=== PATIENT | male | born 1965 | race Hispanic/Latino ===

== ENCOUNTER 2017-10-30 08:06 | Outpatient (CLI) | payer OTHER ==
--- NOTE | 2017-10-30 12:48 | Ultrasound Report ---
RIGHT UPPER QUADRANT ABDOMINAL ULTRASOUND: 10/30/17 08:06:00 CLINICAL: Right upper quadrant abdominal pain. FINDINGS: High-resolution ultrasound demonstrated enlarged liver with moderate diffuse increased echogenicity. The right lobe measures approximately 17 cm in length. No liver mass.. Normal hepatic vasculature and inferior vena cava. Normally distended gallbladder with no stones. The gall bladder wall measures 2.0 mm in thickness. Normal intrahepatic and extra hepatic bile ducts. The common bile duct measures 3.0 mm diameter. Normal pancreatic head and body. The pancreatic tail is obscured by bowel gas. Normal upper abdominal aorta. The right kidney is normal and measures 11.9 x 5.5 x 4.9cm. No ascites or mass. IMPRESSION: 1. Hepatic steatosis and mild hepatomegaly. 2. No cholelithiasis but no signs of acute cholecystitis. 3. No biliary obstruction. 4. No signs of pancreatitis.
== END 2017-10-30 08:07 | disposition home or self-care (01) ==
LOC: SPVWC 08:06
PROVIDERS: ATTEND Internal Medicine
DX: K76.0 Fatty (change of) liver, not elsewhere classified (principal); R16.0 Hepatomegaly, not elsewhere classified
CPT/HCPCS: 76705